=== PATIENT | female | born 1985 ===

== ENCOUNTER 2018-09-22 06:22 | Day surgery (SDC) | payer BC ==
[2018-09-22 06:35] VITALS: BMI 39.1
[2018-09-22 07:15] LABS: HEMOGLOBIN 13.3 g/dL (12.0-16.0); MEAN CELL VOLUME 88.7 fl (81.0-99.0); MEAN CORPUSCULAR HEMOGLOBIN 30.2 pg (27.0-31.0); RBC 4.42 Mil/uL (3.80-5.20); RED CELL DISTRIBUTION WIDTH 13.3 % (11.5-14.5); WHITE BLOOD COUNT 9.3 K/uL (4.8-10.8)
[2018-09-22] MEDS ORDERED: Rocuronium 10 mg/ml (5 ml) ONE (08:23)
[2018-09-22] MEDS ORDERED: Midazolam 2 MG/2 ML VIAL ONE (08:23)
[2018-09-22] MEDS ORDERED: Propofol 10 mg/ml Inj (20 ML) ONE (08:23)
[2018-09-22] MEDS ORDERED: ePHEDrine 50 mg/ml Inj ONE (08:23)
[2018-09-22] MEDS ORDERED: Succinylcholine 200 mg/10 ml Inj IV ONE (08:24)
[2018-09-22] MEDS ORDERED: Sodium Chloride 0.9% 10 ML IV ONE (08:30)
[2018-09-22] MEDS ORDERED: Lactated Ringer's 1,000 ML IV ONE ×2 (09:16→10:40)
[2018-09-22] MEDS ORDERED: Bupivacaine 0.25% Inj(30mL) INFIL ONE ×2 (10:02)
[2018-09-22] MEDS ORDERED: Dexamethasone 4 mg/1 ml ONE (10:19)
[2018-09-22] MEDS ORDERED: Neostigmine 1:1000 (1 mg/ml) Inj ONE (10:42)
[2018-09-22 11:30] VITALS: RESP 18
[2018-09-22 14:08] VITALS: PULSE 72; TEMP 98.6
[2018-09-22 15:56] VITALS: BP 118/80; O2SAT 99
--- NOTE | 2018-09-22 23:06 | OP ---
PROCEDURE DATE: 09/22/2018 PREOPERATIVE DIAGNOSIS: Ectopic . POSTOPERATIVE DIAGNOSIS: Ectopic , pending pathology. SURGEON: Manuel Montemayor MD MELTER CASTER: Van Marinelli MD ANESTHESIOLOGIST: Connie Richardson MD ANESTHESIA: General anesthesia. PROCEDURE: Laparoscopy with left partial salpingectomy. FINDINGS: Left ectopic , tubal on rupture. DESCRIPTION OF PROCEDURE: With the patient in the dorsal lithotomy position under general anesthesia, the patient was draped and prepped in the usual sterile manner, after which a Reyes catheter was put into place, and bladder was drained. Following this, a single-tooth tenaculum was used to grasp the anterior cervix. The cervix was dilated with graded dilators. Following this, the uterine manipulator put into place. Dr. Marinelli helped in preparation of the surgery. After this was done, we moved to the abdomen. The abdomen was tented and a Veress needle was introduced and inflating the abdomen to about [address] Marinelli was assisting in each step of the way. After this was done, a small incision was made below the umbilicus about 1 cm. A #10 trocar was introduced. Sleeve was left into place, and the camera attached to the scope was also introduced into the abdominopelvic cavity. Following this, there were two other punctures were made. A #5 trocar left after midline, #10/12 trocar to the right after midline. Upon entering the cavity, the left ectopic was visualized in the middle of the left tube. Dr. Marinelli was assisting each step of the way. After this was done, the ectopic was identified, the tube was then grasped. The ectopic was removed with a LigaSure. Bleeding was minimal. Following this, the pelvic cavity was irrigated until clean. Dr. Marinelli was assisting in each step of the way. After this was done, the ectopic was removed from the pelvic cavity. Hemostasis was maintained, and the pelvic abdominal cavity was irrigated until clean. After this was done, the instruments were removed from the pelvic and abdominal cavity. Dr. Marinelli was assisting in each step of the way. After this was done, the abdomen was deflated. All the incisions were closed with Vicryl and Dermabond. Hemostasis was maintained in each incision. The Reyes catheter was removed from the bladder. The instruments were removed from the uterine cavity. The patient tolerated the procedure well with a satisfactory condition on the way to the recovery room. Blood loss was like minimal. Dr. Marinelli was assisting in each way helping in closure of the incisions. Manuel Montemayor MD
== END 2018-09-22 16:00 | disposition home or self-care (01) ==
LOC: H.OPSURG 06:22
PROVIDERS: ATTEND Specialist
DX: O00.90 Unspecified ectopic pregnancy without intrauterine pregnancy (principal)
CPT/HCPCS: 36415; 59151; 85027; 86850; 86900; 88305; J0330; J0690; J1100; J1170; J2001; J2250; J2405; J2704; J2710; J3010; J7030; J7120